=== PATIENT | male | born 1965 | race Caucasian/White ===

== ENCOUNTER 2020-01-20 10:51 | Emergency (ER) | payer OTHER, SELFPAY ==
[2020-01-20 10:54] VITALS: BP 134/86; PULSE 63; RESP 20; TEMP 36.6; O2SAT 98
--- NOTE | 2020-01-20 11:06 | ED.URI ---
HPI - URI/Sore Throat General Chief Complaint: Upper Respiratory Infection Stated Complaint: ear pain/sore throat/ness Time Seen by Provider: 01/20/20 11:15 Source: patient and RN notes reviewed Mode of arrival: ambulatory Limitations: no limitations History of Present Illness HPI Narrative: 54-year-old male presents with concern for 2-week history of nasal congestion, sinus pain, sinus headache, bilateral ear pain, cough, sore throat. Reports occasional shortness of breath with coughing. Reports travel to [place] 3 weeks ago. Denies any fever, body aches, chills, malaise. MD elicited complaint: cough and nasal congestion Related Data Home Medications Medication Instructions Recorded Confirmed Allergy Medication 01/20/20 guaifenesin [Mucinex] 1,200 mg PO BID 01/20/20 01/20/20 lysine 500 mg PO DAILY 01/20/20 01/20/20 [id number]-lutein 1 tablet PO DAILY 01/20/20 01/20/20 [Men 50 Plus Multivitamin] quinapril 40 mg PO DAILY 01/20/20 01/20/20 rosuvastatin [Crestor] 40 mg PO DAILY 01/20/20 01/20/20 sertraline 50 mg PO DAILY 01/20/20 01/20/20 Allergies Allergy/AdvReac Type Severity Reaction Status Date / Time Penicillins Allergy Unknown Hives Verified 01/20/20 11:08 Review of Systems Review of Systems: Narrative: CONSTITUTIONAL: Denies malaise, chills, sweats, or fever. EYES: Denies visual changes, redness, or discharge. ENT: Reports rhinorrhea, congestion, sinus pain, otalgia and sore throat. CARDIOVASCULAR: Denies chest pain, palpitations, or edema. RESPIRATORY: Reports cough, chest congestion, occasional dyspnea. GASTROINTESTINAL: Denies abdominal pain, nausea, vomiting, diarrhea SKIN: Denies rash or itching. MUSCULOSKELETAL: Denies myalgia. NEUROLOGIC: Reports headache. All systems reviewed & are unremarkable except as noted in HPI and below PMFSH Family History Family History (Updated 06/05/16 @ 23:19 by DOCTOR UNKNOWN) Mother Hypertension Family history of chronic obstructive pulmonary disease Family history of thyroid disease Father Family history of diabetes mellitus in first degree relative Sibling Family history of alcoholism Social History Social History Smoking status: Never smoker Alcohol intake: current Comments At time of signature, agree with nursing past medical, surgical, social and family history. There is no relevant family history pertinent to the presenting complaint Exam Narrative: Exam Narrative: GENERAL: Well-appearing, well-nourished, and in no acute distress. HEAD: Normocephalic EYES: PERRLA, conjunctivae clear ENT: Nares clear, turbinates edematous and erythematous, purulent discharge. Mucous membranes moist. TM pearly do with dull light reflex bilaterally; no tragal tenderness. Oropharynx mildly erythematous without lesions. Tonsils not enlarged and without exudate, no drooling, no hoarseness, no trismus, uvula midline. NECK: Supple. No lymphadenopathy CHEST: Clear to auscultation, breath sounds equal. No wheezing, rhonchi, rales, or stridor. No respiratory distress, speaks in full sentences. Cough noted HEART: Regular rate and rhythm. No murmur heard. SKIN: Warm, dry, no rash. NEURO: Alert and oriented x3. PSYCH: Normal mood and affect Course Course Emergency Course: Patient is aware of diagnosis, understands and agrees to treatment plan. Anticipatory guidance given. Patient agrees to follow-up as directed and is aware of reasons to seek care at the emergency department. Portions of this record may have been created with voice recognition software Vital Signs Vital signs: Vital Signs Temperature 97.9 F 01/20/20 10:54 Pulse Rate 63 01/20/20 10:54 Respiratory Rate 01/20/20 10:54 Blood Pressure 134/86 01/20/20 10:54 Pulse Oximetry 98 01/20/20 10:54 Temperature 97.9 F 01/20/20 10:54 Pulse Rate 63 01/20/20 10:54 Respiratory Rate 01/20/20 10:54 Blood Pressure 134/86 01/20/20 10:54 Pulse Oximetry 98 01/20/20
== END 2020-01-20 11:31 | disposition home or self-care (01) ==
PROVIDERS: Emergency Provider Nurse Practitioner
DX: J32.9 Chronic sinusitis, unspecified (principal); J40 Bronchitis, not specified as acute or chronic; E78.00 Pure hypercholesterolemia, unspecified
CPT/HCPCS: 87804; 99213; G0463